=== PATIENT | female | born 1980 | race Caucasian/White ===

== ENCOUNTER 2020-11-22 09:01 | Emergency (ER) | payer OTHER ==
[~2020-11-22] VITALS: Ht 170.2 cm; Wt 54.4 kg
[2020-11-22 09:16] LABS: URINE BILIRUBIN NEGATIVE (Negative); URINE BLOOD NEGATIVE (Negative); URINE CLARITY CLEAR; URINE COLOR YELLOW; URINE GLUCOSE-RANDOM NEGATIVE (Negative); URINE KETONES NEGATIVE (Negative); URINE LEUKOCYTES NEGATIVE (Negative); URINE NITRITE NEGATIVE (Negative); URINE PROTEIN NEGATIVE (Negative); URINE UROBILINOGEN 0.2 E.U./dl (0.2-1.0)
[2020-11-22 09:30] LABS: ABSOLUTE BASOPHILS 0.1 thou/uL (0.0-0.2); ABSOLUTE EOSINOPHILS 0.1 thou/uL (0.0-0.7); ABSOLUTE LYMPHOCYTES 1.4 thou/uL (0.8-5.3); ABSOLUTE MONOCYTES 0.3 thou/uL (0.0-1.2); ABSOLUTE NEUTROPHILS 2.4 thou/uL (1.6-8.1); BASOPHILS 1.3 %; EOSINOPHILS 1.7 %; HEMATOCRIT 42.6 % (37.0-47.0); HEMOGLOBIN 14.8 gm/dL (12.0-15.0); LYMPHOCYTES 33.1 %; MCH 33.5 pg (26.0-34.0); MCHC 34.6 g/dL (28.0-37.0); MCV 96.7 fL (80.0-100.0); MONOCYTES 7.4 %; MPV 7.2 fl. (7.2-11.1); NUCLEATED RBCS 0 /100WBC; PLATELET COUNT* 212 thou/uL (150-400); POLYS 56.5 %; RBC 4.41 mil/uL (4.20-5.00); RDW-CV 12.6 % (10.5-14.5); WBC 4.2 thou/uL (4.0-11.0)
[2020-11-22 09:39] LABS: CALCIUM 9.1 mg/dL (8.5-10.1); CREATININE 0.6 mg/dL (0.6-1.3); POTASSIUM 4.3 mmol/L (3.5-5.1)
[2020-11-22 09:40] LABS: ALBUMIN 4.1 g/dL (3.4-5.0); TOTAL BILIRUBIN 0.9 mg/dL (<0.1-1.0); TOTAL PROTEIN 7.8 g/dL (6.4-8.2)
[2020-11-22] MEDS ORDERED: PROTONIX40 MG PO (11:04)
[2020-11-22 11:16] VITALS: BP 111/58
== END 2020-11-22 11:16 | disposition home or self-care (01) ==
LOC: M.ERS 09:01
PROVIDERS: Emergency Medicine
DX: K27.9 Peptic ulcer, site unspecified, unspecified as acute or chronic, without hemorrhage or perforation (principal); Z85.3 Personal history of malignant neoplasm of breast

== ENCOUNTER 2020-12-17 15:44 | Emergency (ER) | payer OTHER ==
[~2020-12-17] VITALS: Ht 170.2 cm; Wt 52.2 kg
[~2020-12-17 15:44] MED LIST: PROTONIX40 MG PO
[2020-12-17 16:37] LABS: ABSOLUTE BASOPHILS 0.1 thou/uL (0.0-0.2); ABSOLUTE EOSINOPHILS 0.1 thou/uL (0.0-0.7); ABSOLUTE LYMPHOCYTES 1.7 thou/uL (0.8-5.3); ABSOLUTE MONOCYTES 0.4 thou/uL (0.0-1.2); ABSOLUTE NEUTROPHILS 3.5 thou/uL (1.6-8.1); BASOPHILS 1.1 %; EOSINOPHILS 1.1 %; HEMATOCRIT 40.3 % (37.0-47.0); HEMOGLOBIN 14.4 gm/dL (12.0-15.0); LYMPHOCYTES 29.2 %; MCH 34.5 pg (26.0-34.0); MCHC 35.8 g/dL (28.0-37.0); MCV 96.3 fL (80.0-100.0); MONOCYTES 6.8 %; MPV 7.1 fl. (7.2-11.1); NUCLEATED RBCS 0 /100WBC; PLATELET COUNT* 194 thou/uL (150-400); POLYS 61.8 %; RBC 4.18 mil/uL (4.20-5.00); RDW-CV 12.4 % (10.5-14.5); WBC 5.7 thou/uL (4.0-11.0)
[2020-12-17 16:47] LABS: CREATININE 0.8 mg/dL (0.6-1.3); POTASSIUM 3.7 mmol/L (3.5-5.1)
[2020-12-17 16:52] LABS: TOTAL BILIRUBIN 0.6 mg/dL (<0.1-1.0); TOTAL PROTEIN 7.2 g/dL (6.4-8.2)
[2020-12-17] MEDS ORDERED: ONDANSETRON ODT4 MG PO (17:23)
[2020-12-17] MEDS ORDERED: FLEXERIL PO (17:23)
[2020-12-17] MEDS ORDERED: BUTALB-APAP-CA1 EACH PO (17:23)
[2020-12-17 17:55] VITALS: BP 105/55
--- NOTE | 2020-12-18 11:09 | EKG ---
[place] [address] ELECTROCARDIOGRAM REPORT Name: KARUNA HOLLAND Room: [facility]#: [id number] Admission: 12/17/20 Attend Phys: Discharge: 12/17/20 Date of : 78 Date of Service: 12/17/20 1632 Report #: [id number] THIS REPORT FOR: //name// [facility] ED Test Date: 2020-12-17 Test Time: 16:32:07 Pat Name: KARUNA HOLLAND Department: Room: Gender: F Manager Wound Care: RIO : 1980 Requested By: Howie Potts Order Number: [id number] MD: Manuel Madden Measurements Intervals [place] Rate: 55 P: 45 NC: 134 QRS: 67 QRSD: 105 T: 58 QT: 417 QTc: 399 Interpretive Statements Sinus bradycardia artifact noted ST elev, probable normal early repol pattern Baseline wander in lead(s) V6 No previous ECG available for comparison Electronically Signed On 12-18-2020 11:09:52 CDT by Manuel Madden [email or web address] <ELECTRONICALLY SIGNED> By: Manuel Madden MD, FAC 12/18/20 1109 1632 1632 Manuel Madden MD, [facility] /EPI
== END 2020-12-17 17:55 | disposition home or self-care (01) ==
LOC: M.ERS 15:44
PROVIDERS: Physician Assistant
DX: S16.1XXA Strain of muscle, fascia and tendon at neck level, initial encounter (principal); S09.8XXA Other specified injuries of head, initial encounter; R42 Dizziness and giddiness; Z85.3 Personal history of malignant neoplasm of breast; Z90.13 Acquired absence of bilateral breasts and nipples; W22.8XXA Striking against or struck by other objects, initial encounter; Y93.89 Activity, other specified; Y92.89 Other specified places as the place of occurrence of the external cause; Y99.8 Other external cause status

== ENCOUNTER → 2021-01-12 | Outpatient (CLI) | payer OTHER ==
[~2021-01-12] MED LIST changes: +BUTALB-APAP-CA1 EACH PO; +FLEXERIL PO; +ONDANSETRON ODT4 MG PO
== END ==
LOC: M.ULTRA 07:25
PROVIDERS: ATTEND Internal Medicine Gastroenterology
DX: R10.13 Epigastric pain (principal)

== ENCOUNTER → 2021-01-20 | Outpatient (CLI) | payer OTHER | LOC: M.NUC 07:30 | PROVIDERS: ATTEND Internal Medicine Gastroenterology | DX: R10.9 Unspecified abdominal pain (principal) ==